=== PATIENT | female | born 1960 | race Caucasian/White ===

== ENCOUNTER 2018-03-28 01:12 | Emergency (ER) | payer OTHER ==
[~2018-03-28] VITALS: Ht 170.2 cm; Wt 55.3 kg
[~2018-03-28 01:12] MED LIST: ASCOMP WITH CO1 EACH PO; DILAUDID2 MG PO; ELAVIL100 MG PO; FIBER CHOICE1 TABLET PO; FIBER0.52 GM PO; FIORICET WI1 CAPSULE PO; FIORICET,ESG1 TABLET PO; FLEXERIL10 MG PO; IMITREX; IMITREX100 MG PO; IMITREX6 MG/0.53 SC; IMODIUM2 MG PO; MEDROL DOSEPAK4 MG PO; ONDANSETRON ODT4 MG PO; PHENERGAN12.5 M1 PO; PHENERGAN25 MG PO; PHENERGAN25 MG PR; PREDNISONE10 M1 PO; TESSALON200 MG PO; TOPAMAX25 MG PO; ULTRAM50 MG PO; VENTOLIN HFA18 GM IH; ZITHROMAX Z-PA250 MG PO; ZOFRAN4 MG PO; [UNRECOGNIZED DRUG - OTHER]; [UNRECOGNIZED DRUG - OTHER]; [UNRECOGNIZED DRUG - REMARK]; [UNRECOGNIZED DRUG - REMARK] PO
[2018-03-28 03:15] LABS: HEMATOCRIT 44.1 % (36.0-46.0); HEMOGLOBIN 14.8 G/DL (11.9-15.5); MCH 31.2 PG (29.0-34.0); MCHC 33.6 G/DL (30.0-36.0); PLATELET COUNT 300 K/uL (156-360); RBC DIS.WIDTH-CV 12.6 % (11.8-14.6); RBC DIS.WIDTH-SD 43.4 % (39-53); RED BLOOD COUNT 4.74 M/uL (3.80-5.20); WHITE BLOOD COUNT 13.8 K/uL (4.1-10.2)
[2018-03-28 03:41] LABS: ALBUMIN 4.6 g/dL (3.2-4.8); CHLORIDE 105 mEq/L (99-109); POTASSIUM 4.7 mEq/L (3.7-5.4); SODIUM 141 mEq/L (136-147)
[2018-03-28 03:43] LABS: GLUCOSE 120 mg/dL (70-99); TOTAL PROTEIN 7.8 g/dL (6.4-8.3)
[2018-03-28 03:45] LABS: TOTAL BILIRUBIN 0.3 mg/dL (0.0-1.0)
[2018-03-28 03:47] LABS: ALKALINE PHOSPHATASE 102 IU/L (3-129); CREATININE 0.9 mg/dL (0.6-1.3); GFR ESTIMATE (CALCULATED) > 59 mL/min/
[2018-03-28 03:48] LABS: UREA NITROGEN (BUN) 13 mg/dL (9-23)
[2018-03-28 03:49] LABS: AST (GOT) 21 IU/L (2-34)
[2018-03-28 03:50] LABS: ALT (GPT) 16 IU/L (3-49); LIPASE 9 U/L (1.0-51.0)
[2018-03-28 03:56] LABS: TROP-I INTERPRETATION NEGATIVE; TROPONIN-I 0.02 ng/mL (0.0-0.30)
[2018-03-28 03:57] LABS: CK-MB < 0.4 ng/mL (0.0-4.9)
[2018-03-28 04:15] LABS: SERUM ETHYL ALCOHOL < 10 mg/dL
[2018-03-28 04:38] LABS: CREATINE KINASE 37 IU/L (1-294); TOTAL CK 37 IU/L (1-294)
[2018-03-28 05:05] VITALS: BP 151/93
[2018-03-28 05:07] LABS: APPEARANCE CLEAR ((CLEAR)); BILIRUBIN NEGATIVE; BLOOD NEGATIVE; COLOR YELLOW ((YELLOW)); GLUCOSE (STRIP) NEGATIVE; KETONES NEGATIVE; LEUKOCYTES NEGATIVE; NITRITE NEGATIVE; PROTEIN (STRIP) NEGATIVE; SPECIFIC GRAVITY 1.012 (1.000-1.030); UCUL ADDED? NO; UROBILINOGEN 0.2 MG/DL (0.2-1.0)
[2018-03-28 07:28] LABS: AMPHETAMINE NEGATIVE (500 ng/mL); BARBITURATES NEGATIVE (200 ng/mL); BENZODIAZEPINES NEGATIVE (150 ng/mL); BUPRENORPHINE NEGATIVE (10 ng/mL); COCAINE NEGATIVE (150 ng/mL); METHADONE NEGATIVE (200 ng/mL); METHAMPHETAMINE NEGATIVE (500 ng/mL); OPIATES (MORPHINE) NEGATIVE (100 ng/mL); OXYCODONE NEGATIVE (100 ng/mL); PHENCYCLIDINE NEGATIVE (25 ng/mL); PROPOXYPHENE NEGATIVE (300 ng/mL); THC CANNABINOIDS NEGATIVE (50 ng/mL); TRICYCLIC ANTIDEPRESSANTS PRESUMPTIVE POSITIVE (300 ng/mL)
== END 2018-03-28 05:05 | disposition home or self-care (01) ==
LOC: EME 01:12
PROVIDERS: Emergency Medicine
DX: E86.0 Dehydration (principal); S00.93XA Contusion of unspecified part of head, initial encounter; W19.XXXA Unspecified fall, initial encounter; R94.31 Abnormal electrocardiogram [ECG] [EKG]; J45.909 Unspecified asthma, uncomplicated; K50.90 Crohn's disease, unspecified, without complications; G43.909 Migraine, unspecified, not intractable, without status migrainosus; Z86.718 Personal history of other venous thrombosis and embolism; Z86.69 Personal history of other diseases of the nervous system and sense organs; Z90.710 Acquired absence of both cervix and uterus; Z88.0 Allergy status to penicillin; Z88.6 Allergy status to analgesic agent; Z88.8 Allergy status to other drugs, medicaments and biological substances
CPT/HCPCS: 70450; 71045; 80053; 81003; 82550; 82553; 83690; 84484; 85027; 93005; 99281; 99285; G0480; J7030

== ENCOUNTER 2018-04-14 11:31 | Emergency (ER) | payer OTHER ==
[~2018-04-14] VITALS: Ht 170.2 cm; Wt 56.4 kg
[2018-04-14 14:37] VITALS: BP 141/61
== END 2018-04-14 14:38 | disposition home or self-care (01) ==
LOC: EME 11:31
DX: M25.551 Pain in right hip (principal); Z91.81 History of falling; J45.909 Unspecified asthma, uncomplicated; K50.90 Crohn's disease, unspecified, without complications; Z86.718 Personal history of other venous thrombosis and embolism; Z90.710 Acquired absence of both cervix and uterus; Z86.61 Personal history of infections of the central nervous system; Z88.0 Allergy status to penicillin; Z88.8 Allergy status to other drugs, medicaments and biological substances
CPT/HCPCS: 73502; 99281; 99283